=== PATIENT | female | born 1965 | race Caucasian/White ===

== ENCOUNTER 2017-04-19 09:14 | Emergency (ER) | payer BC ==
[~2017-04-19] VITALS: Ht 167.6 cm; Wt 90.7 kg
[~2017-04-19 09:14] MED LIST: ONDA4TAB10 SL; OXYC-323 PO
[2017-04-19] MEDS ORDERED: IV NORMAL SALINE 1000ML BAG 1,000 ML IV ONE (10:00)
[2017-04-19] MEDS ORDERED: KETOROLAC 30 MG/ML INJ. IV ONE (10:00)
[2017-04-19] MEDS ORDERED: ONDANSETRON PF 4 MG/2 ML VIAL. IV ONE (10:00)
--- NOTE | 2017-04-19 10:09 | PHYS DOC ---
Past Medical History Past Medical History: Diabetes-Type II, Kidney Stone Past Surgical History: Appendectomy, Tonsillectomy Alcohol Use: Occasionally Drug Use: None Adult General Chief Complaint Chief Complaint: ABDOMINAL PAIN HPI HPI Patient is a 51 year old female who presents with bilateral flank pain with radiation into her abdomen, more prominent in her right upper quadrant. It occurred abruptly yesterday when she twisted work. Initially she thought maybe that she throughout her back, then she noted radiation of pain towards the lower abdomen and had blood in her urine. Pt then thought it felt similar to prior kidney stones. She was given a Toradol shot by her boss at her medical place of work and went home. She continues to have the pain today, nausea no vomiting. She also had some chest pain overnight but this resolved. Also reports watery diarrhea since yesterday. H/o appendectomy. Review of Systems Review of Systems Constitutional: Denies fever or chills [] Eyes: Denies change in visual acuity, redness, or eye pain [] HENT: Denies nasal congestion or sore throat [] Respiratory: Denies cough or shortness of breath [] Cardiovascular: chest pain overnight - resolved GI: per hpi, reports watery stools. : Denies dysuria or hematuria [] Musculoskeletal: Denies joint pain [] Integument: Denies rash or skin lesions [] Neurologic: Denies headache, focal weakness or sensory changes [] Current Medications Current Medications Current Medications Medications (Trade) Dose Ordered Sig/[place] Start Time Stop Time Status Last Admin Dose Admin Ketorolac Tromethamine (Toradol) 30 mg 1X ONCE 04/19/17 10:00 04/19/17 10:02 DC 04/19/17 10:28 30 MG Ondansetron HCl (Zofran) 4 mg 1X ONCE 04/19/17 10:00 04/19/17 10:02 DC 04/19/17 10:27 4 MG Sodium Chloride 1,000 ml @ 1,000 mls/hr 1X ONCE 04/19/17 10:00 04/19/17 10:59 DC 04/19/17 10:27 1,000 MLS/HR Allergies Allergies Allergies Coded Allergies Type Severity Reaction Last Updated Verified No Known Drug Allergies 09/25/13 No Physical Exam Physical Exam Constitutional: Well developed, well nourished, no acute distress, non-toxic appearance.Obese HENT: Normocephalic, atraumatic, bilateral external ears normal, oropharynx moist, no oral exudates, nose normal. [] Eyes: PERRLA, EOMI, conjunctiva normal, no discharge. [] Neck: Normal range of motion, no tenderness, supple, no stridor. [] Cardiovascular:Heart rate regular with regular rhythm, no murmur [] Lungs & Thorax: Bilateral breath sounds clear to auscultation [] Abdomen: Bowel sounds normal, soft, nondistended, no appreciable ttp, no guarding, no peritoneal signs Skin: Warm, dry, no erythema, no rash. [] Back: No tenderness, no CVA tenderness. [] Extremities: No tenderness, no cyanosis, no clubbing, ROM intact, no edema. [] Neurologic: Alert and oriented X 3, normal motor function, normal sensory function, no focal deficits noted. [] Psychologic: Affect normal, judgement normal, mood normal. [] Current Patient Data Vital Signs Vital Signs Date Time Temp Pulse Resp B/P (MAP) Pulse Ox O2 Delivery O2 Flow Rate FiO2 04/19/17 10:55 78 127/82 (97) 99 Room Air 04/19/17 09:31 97.7 97.7 Lab Values Laboratory Tests Test 04/19/17 10:20 04/19/17 10:50 White Blood Count 8.8 x10^3/uL (4.0-11.0) Red Blood Count 4.78 x10^6/uL (3.50-5.40) Hemoglobin 15.1 g/dL (12.0-15.5) Hematocrit 45.4 % (36.0-47.0) Mean Corpuscular Volume 95 fL (79-100) Mean Corpuscular Hemoglobin 32 pg (25-35) Mean Corpuscular Hemoglobin Concent 33 g/dL (31-37) Red Cell Distribution Width 13.2 % (11.5-14.5) Platelet Count 304 x10^3/uL (140-400) Neutrophils (%) (Auto) 75 % (31-73) H Lymphocytes (%) (Auto) 14 % (24-48) L Monocytes (%) (Auto) 7 % (0-9) Eosinophils (%) (Auto) 4 % (0-3) H Basophils (%) (Auto) 1 % (0-3) Neutrophils # (Auto) 6.6 x10^3uL (1.8-7.7) Lymphocytes # (Auto) 1.2 x10^3/uL (1.0-4.8) Monocytes # (Auto) 0.6 x10^3/uL (0.0-1.1) Eosinophils # (Auto) 0.3 x10^3/uL (0.0-0.7) Basophils # (Auto) 0.1 x10^3/uL (0.0-0.2) Sodium Level 142 mmol/L (136-145) Potassium Level 4.5 mmol/L (3.5-5.1) Chloride Level 104 mmol/L (98-107) Carbon Dioxide Level 28 mmol/L (21-32) Anion Gap 10 (6-14) Blood Urea Nitrogen 23 mg/dL (7-20) H Creatinine 0.9 mg/dL (0.6-1.0) Estimated GFR (Cockcroft-Gault) 65.5 BUN/Creatinine Ratio 26 (6-20) H Glucose Level 162 mg/dL (70-99) H Calcium Level 9.5 mg/dL (8.5-10.1) Total Bilirubin 0.3 mg/dL (0.2-1.0) Aspartate Amino Transferase (AST) 33 U/L (15-37) Alanine Aminotransferase (ALT) 51 U/L (14-59) Alkaline Phosphatase 116 U/L (46-116) Troponin I Quantitative < 0.017 ng/mL (0.000-0.055) Total Protein 7.2 g/dL (6.4-8.2) Albumin 4.2 g/dL (3.4-5.0) Albumin/Globulin Ratio 1.4 (1.0-1.7) Lipase 204 U/L (73-393) Urine Collection Type Unknown Urine Color Yellow Urine Clarity Clear Urine pH 7.5 Urine Specific [place] 1.020 Urine Protein Negative mg/dL (NEG-TRACE) Urine Glucose (UA) Negative mg/dL (NEG) Urine Ketones (Stick) Negative mg/dL (NEG) Urine Blood Trace (NEG) Urine Nitrite Negative (NEG) Urine Bilirubin Negative (NEG) Urine Urobilinogen Dipstick 0.2 mg/dL (0.2 mg/dL) Urine Leukocyte Esterase Negative (NEG) Urine RBC 3-5 /HPF (0-2) Urine WBC 1-4 /HPF (0-4) Urine Squamous Epithelial Cells Few /LPF Urine Bacteria Few /HPF (0-FEW) Laboratory Tests 04/19/17 10:20 Laboratory Tests 04/19/17 10:20 EKG EKG [] Radiology/Procedures Radiology/Procedures CT abd/pelvis: Impression: No evidence of urolithiasis or obstructive uropathy. Mild wall thickening of the left colon and transverse colon without surrounding inflammation. This is not diverticulitis. This could be inflammatory or infectious colitis. There is no air in the wall to suggest ischemic colitis.[] Course & Med Decision Making Course & Med Decision Making Pertinent Labs and Imaging studies reviewed. (See chart for details) IV started, IV fluids given, toradol, zofran, fluids, labs ordered. Pain controlled, CT results discussed with the pt. pt agreeable with dc and f/u with pcp, return precautions given. Dragon Disclaimer Dragon Disclaimer This electronic medical record was generated, in whole or in part, using a voice recognition dictation system. Departure Departure Impression: Primary Impression: Abdominal pain Disposition: HOME, SELF-CARE Condition: IMPROVED Referrals: ROSARIO DASILVA MD (PCP) Scripts Loperamide Hcl (LOPERAMIDE) 2 Mg Tablet 2 MG PO see instructions, #16 TAB Take 1 tab with each loose stool, up to 8 tabs per day. Prov: RIA WELLINGTON MD 04/19/17 RIA WELLINGTON MD Apr 19, 2017 10:09
--- NOTE | 2017-04-19 10:17 | EKG ---
[facility] [address] [place] [address] Test Date: 2017-04-19 Test Time: 10:11:46 Pat Name: DANYELL TAYLOR Department: Room: Gender: F Learning Development Specialist: : [id number] Requested By: RIA WELLINGTON Order Number: [id number] Reading MD: Measurements Intervals [place] Rate: 78 P: 64 WI: 136 QRS: 3 QRSD: 78 T: 43 QT: 368 QTc: 422 Interpretive Statements SINUS RHYTHM NORMAL ECG No previous ECG available for comparison
[2017-04-19 10:31] LABS: BASO # 0.1 x10^3/uL (0.0-0.2); BASO % 1 % (0-3); EOS % 4 % (0-3); HEMATOCRIT 45.4 % (36.0-47.0); HEMOGLOBIN 15.1 g/dL (12.0-15.5); LYMPH # 1.2 x10^3/uL (1.0-4.8); LYMPH % 14 % (24-48); MEAN CORPUSCULAR HEMOGLOBIN 32 pg (25-35); MEAN CORPUSCULAR HGB CONC 33 g/dL (31-37); MEAN CORPUSCULAR VOLUME 95 fL (79-100); MONO % 7 % (0-9); NEUT % 75 % (31-73); PLATELET COUNT 304 x10^3/uL (140-400); RED BLOOD COUNT 4.78 x10^6/uL (3.50-5.40); RED CELL DISTRIBUTION WIDTH 13.2 % (11.5-14.5); WHITE BLOOD COUNT 8.8 x10^3/uL (4.0-11.0)
[2017-04-19 10:41] LABS: CALCIUM 9.5 mg/dL (8.5-10.1); CREATININE 0.9 mg/dL (0.6-1.0); GFR 65.5; POTASSIUM 4.5 mmol/L (3.5-5.1)
[2017-04-19 10:47] LABS: ALBUMIN 4.2 g/dL (3.4-5.0); ALBUMIN/GLOBULIN RATIO 1.4 (1.0-1.7); TOTAL BILIRUBIN 0.3 mg/dL (0.2-1.0); TOTAL PROTEIN 7.2 g/dL (6.4-8.2)
[2017-04-19 10:55] VITALS: BP 127/82
[2017-04-19 11:05] LABS: BILIRUBIN,URINE NEGATIVE (NEG); GLUCOSE,URINE NEGATIVE (NEG); NITRITE,URINE NEGATIVE (NEG); PH,URINE 7.5; PROTEIN,URINE NEGATIVE (NEG-TRACE); UROBILINOGEN,URINE 0.2 mg/dL (0.2 mg/dL)
[2017-04-19 11:11] LABS: SQUAMOUS EPITHELIAL CELL,UR FEW /LPF
[2017-04-19 11:13] LABS: BACTERIA,URINE FEW /HPF (0-FEW)
--- NOTE | 2017-04-19 12:09 | RAD ---
History: Bilateral flank pain. Comparison:March 04, 2016. Procedure: Axial images are obtained of the abdomen and pelvis without IV or oral contrast. CT abdomen without contrast: Evaluation of solid organs is limited without contrast. Liver: Normal. Spleen: Normal. Pancreas: Normal. Gallbladder: Normal. Adrenal Glands: There is a 2.6 cm adrenal adenoma left, an incidental finding.. This is unchanged. Kidneys: Normal. There is no free air or free fluid. There is no lymphadenopathy. There is mild wall thickening of the left colon and transverse colon. Impression: Please see CT pelvis without contrast. CT pelvis without contrast: Evaluation of stomach and bowel is limited without contrast. There is no free fluid or lymphadenopathy. Impression: No evidence of urolithiasis or obstructive uropathy. Mild wall thickening of the left colon and transverse colon without surrounding inflammation. This is not diverticulitis. This could be inflammatory or infectious colitis. There is no air in the wall to suggest ischemic colitis. PQRS Compliance Statement: One or more of the following individualized dose reduction techniques were utilized for this examination: 1. Automated exposure control 2. Adjustment of the mA and/or kV according to patient size 3. Use of iterative reconstruction technique
[2017-04-19] MEDS ORDERED: LOPE2TAB27 PO (12:22)
== END 2017-04-19 12:30 | disposition home or self-care (01) ==
LOC: ER 09:14
DX: R10.11 Right upper quadrant pain (principal); R10.12 Left upper quadrant pain; R19.7 Diarrhea, unspecified; E11.9 Type 2 diabetes mellitus without complications; Z87.442 Personal history of urinary calculi; Z90.49 Acquired absence of other specified parts of digestive tract
CPT/HCPCS: 36415; 74176; 80053; 81001; 83690; 84484; 85025; 93005; 96374; 96375; 96376; 99285; J1885; J2405; J7030

== ENCOUNTER → 2018-03-18 | Outpatient (CLI) | payer BC ==
[~2018-03-18] MED LIST changes: +LOPE2TAB27 PO
--- NOTE | 2018-03-18 14:13 | KCIC ---
CHEST PA LATERAL Clinical indications: Shortness of breath. Difficulty breathing. Productive cough since March 14, 2018. Smoker. COMPARISON: March 04, 2013. Findings: No acute lung infiltrate or pleural effusion or pulmonary edema or lung mass or pneumothorax is seen. The heart size, pulmonary vasculature, mediastinum and both sergio are unremarkable. The osseous structures appear intact. Impression: No acute radiographic abnormality is seen. Electronically signed by: Yaron Craig MD (03/18/2018 2:10 PM) [place] [id number]
== END | disposition home or self-care (01) ==
LOC: KCIC 13:45
PROVIDERS: ATTEND Family Medicine
DX: R06.02 Shortness of breath (principal); R05 Cough; F17.210 Nicotine dependence, cigarettes, uncomplicated
CPT/HCPCS: 71046

== ENCOUNTER 2020-08-12 11:50 | Observation (INO) | payer BC ==
[~2020-08-12] VITALS: Ht 167.6 cm; Wt 70.5 kg
[~2020-08-12 11:50] MED LIST changes: -OXYC-323 PO; +OXYC1TAB15 PO
--- NOTE | 2020-08-12 12:19 | PHYS DOC ---
Past Medical History Past Medical History: Diabetes-Type II, Kidney Stone Past Surgical History: Appendectomy, Tonsillectomy Smoking Status: Current Every Day Smoker Alcohol Use: Occasionally Drug Use: None General Adult EDM: Chief Complaint: CHEST PAIN HPI: HPI: 55-year-old female presented emerge department today with left-sided chest pain radiates down the arm into the left shoulder and into the back. She had some nausea with vomiting earlier today with some tingling in her left arm. She denies any diaphoresis or shortness of breath. She does have some dizziness associated with the symptoms. She reports that her glucose was 600 earlier this morning but came down with some insulin and here is about 366. She denies unilateral leg swelling hemoptysis recent surgery or immobilization. She denies history of DVT or PE. She has a family history of heart disease, has a history of hypertension but currently is not treated, has hyperlipidemia and is a current smoker. She also has diabetes. Review of systems negative for abdominal pain diaphoresis fevers chills. Positive for chest pain. She denies headache vomiting nuchal rigidity or focal neurologic deficits. All other review of systems negative. 55-year-old female presenting to the emergency department today with chest pain. On arrival she is afebrile with a normal heart rate. Saturating well on room air. Her EKG shows sinus rhythm with a regular rate. ST segments congruent. S he has some nonspecific T wave flattening in her leads III and aVF. ST segments otherwise congruent. Not suggestive of acute ischemia. Nonspecific. Chest x- ray unremarkable. Blood work unremarkable including a normal D-dimer and normal troponin. Heart score calculated. We will admit for serial troponins and cardiology consultation Heart Score: C/O Chest Pain: Yes HEART Score for Chest Pain: HEART Score for Chest Pain Response (Comments) Value History Moderately Suspicious 1 ECG Nonspecific Repolarizatio 1 Age >45 - < 65 1 Risk Factors >3 Risk Factors or Hx CAD 2 Troponin < Normal Limit 0 Total 5 Risk Factors: Risk Factors: DM, Current or recent (<one month) smoker, HTN, HLP, family history of CAD, obesity. Risk Scores: Score 0 - 3: 2.5% MACE over next 6 weeks - Discharge Home Score 4 - 6: 20.3% MACE over next 6 weeks - Admit for Clinical Observation Score 7 - 10: 72.7% MACE over next 6 weeks - Early Invasive Strategies Allergies: Allergies: Allergies Coded Allergies Type Severity Reaction Last Updated Verified No Known Drug Allergies 09/25/13 No Physical Exam: PE: Constitutional: Well developed, well nourished, no acute distress, non-toxic appearance. [] HENT: Normocephalic, atraumatic, bilateral external ears normal, oropharynx moist, no oral exudates, nose normal. [] Eyes: PERRLA, EOMI, conjunctiva normal, no discharge. [] Neck: Normal range of motion, no tenderness, supple, no stridor. [] Cardiovascular:Heart rate regular rhythm, no murmur [] Lungs & Thorax: Bilateral breath sounds clear to auscultation [] Abdomen: Bowel sounds normal, soft, no tenderness, no masses, no pulsatile masses. [] Skin: Warm, dry, no erythema, no rash. [] Back: No tenderness, no CVA tenderness. [] Extremities: No tenderness, no cyanosis, no clubbing, ROM intact, no edema. [] Neurologic: Alert and oriented X 3, normal motor function, normal sensory function, no focal deficits noted. [] Psychologic: Affect normal, judgement normal, mood normal. [] Current Patient Data: Vital Signs: Vital Signs Date Time Temp Pulse Resp B/P (MAP) Pulse Ox O2 Delivery O2 Flow Rate FiO2 08/12/20 12:02 98.0 79 18 151/85 (107) 100 Room Air 98.0 EKG: EKG: [] Radiology/Procedures: Radiology/Procedures: [] Course & Med Decision Making: Course & Med Decision Making Pertinent Labs and Imaging studies reviewed. (See chart for details) [] Dragon Disclaimer: Dragon Disclaimer: This electronic medical record was generated, in whole or in part, using a voice recognition dictation system. Departure Departure Impression: Primary Impression: Chest pain Disposition: ADMITTED INPT THIS HOSP Admitting Physician: HIMS Condition: STABLE Referrals: ROSARIO DASILVA MD (PCP) ANGELA HEATH MD Aug 12, 2020 12:19
[2020-08-12 12:25] LABS: BASO # 0.1 x10^3/uL (0.0-0.2); BASO % 1 % (0-3); EOS # 0.1 x10^3/uL (0.0-0.7); EOS % 2 % (0-3); HEMATOCRIT 41.3 % (36.0-47.0); LYMPH # 2.1 x10^3/uL (1.0-4.8); LYMPH % 25 % (24-48); MEAN CORPUSCULAR HEMOGLOBIN 32 pg (25-35); MEAN CORPUSCULAR HGB CONC 34 g/dL (31-37); MEAN CORPUSCULAR VOLUME 95 fL (79-100); MONO # 0.5 x10^3/uL (0.0-1.1); MONO % 7 % (0-9); NEUT # 5.4 x10^3/uL (1.8-7.7); NEUT % 66 % (31-73); PLATELET COUNT 322 x10^3/uL (140-400); RED BLOOD COUNT 4.34 x10^6/uL (3.50-5.40); RED CELL DISTRIBUTION WIDTH 13.7 % (11.5-14.5); WHITE BLOOD COUNT 8.3 x10^3/uL (4.0-11.0)
--- NOTE | 2020-08-12 12:32 | RAD ---
AP chest. HISTORY: Chest pain AP view was taken of the chest. Lungs are clear. Heart is normal in size. There is no pleural effusio n. IMPRESSION: 1. No acute chest disease. Electronically signed by: Shaq Elias MD (08/12/2020 12:29 PM) [id number]
[2020-08-12 12:42] LABS: CALCIUM 8.8 mg/dL (8.5-10.1); CREATININE 0.8 mg/dL (0.6-1.0); GFR 73.9; POTASSIUM 4.6 mmol/L (3.5-5.1)
[2020-08-12 12:47] LABS: ALBUMIN 3.4 g/dL (3.4-5.0); DIRECT BILIRUBIN 0.1 mg/dL (0.0-0.2); TOTAL BILIRUBIN 0.2 mg/dL (0.2-1.0); TOTAL PROTEIN 6.4 g/dL (6.4-8.2)
[2020-08-12] MEDS ORDERED: DEXTROSE 50% 25 GM / 50ML DISP.SYRIN. IV PRN (13:30)
[2020-08-12] MEDS ORDERED: ASPIRIN CHEWABLE 81 MG TABLET. PO ONE (13:30)
--- NOTE | 2020-08-12 13:32 | PDOC1 ---
History and Physical Date of Admission Date of Admission DATE: 08/12/20 TIME: 13:19 Identification/Chief Complaint Chief Complaint Chest pain Source Source: Patient History of Present Illness History of Present Illness Ms Little is a 55-year-old female w/ PMHx DM2, HLD, nephrolithiasis, smoker who presented emerge department today with left-sided chest pain radiates down the arm into the left shoulder and into the back. She had some nausea with vomiting earlier today with some tingling in her left arm. She denies any diaphoresis or shortness of breath. She does have some dizziness associated with the symptoms. She reports that her glucose was 600 earlier this morning but came down with some insulin and here is about 366. She denies unilateral leg swelling hemoptysis recent surgery or immobilization. She denies history of DVT or PE. Previously has had a cardiac work-up with a stress test back in 2008 she says she assumes was negative with Dr. Domingo but is since not had any cardiac follow-up. She notes she has been frustrated as she has not been able to control her diabetes despite multiple medications. She has side effects from Metformin. She is currently on Januvia and 55 units of glargine insulin at night. She was using Afrin he is inhaled insulin and feels like maybe she made insulin antibodies after using this. Labs WBC 8.3, Hb 14, platelets 322, NA 141, K4.6, BUN 15, CR 0.8, glucose 343, INR 0.9, D-dimer less than 0.27, troponin 0 She denies abdominal pain diaphoresis fevers chills. Positive for chest pain. She denies headache vomiting nuchal rigidity or focal neurologic deficits. All other review of systems negative. EKG shows sinus rhythm with a regular rate of 81bpm. ST segments congruent. She has some nonspecific T wave flattening in her leads I, III and aVF. Now with left axis deviation which is new from prior 2017 study, though not suggest ant of acute ischemia. Chest x-ray unremarkable. Due to high risk for ACS admitted for further care. Past Medical History Cardiovascular: HTN, Hyperlipidemia Endocrine: Diabetes Past Surgical History Past Surgical History: Appendectomy, Tonsillectomy Family History Family History: Coronary Artery Disease, Diabetes, High Cholestrol, Hypertension Social History Smoke: 1 pack per day ALCOHOL: none Drugs: None Current Medications Current Medications Active Scripts Active Loperamide (Loperamide Hcl) 2 Mg Tablet 2 Mg PO SEE INSTRUCTIONS Take 1 tab with each loose stool, up to 8 tabs per day. Percocet 5-325 Mg Tablet (Oxycodone/Acetaminophen) 1 Each Tablet 1 Tab PO PRN Q6HRS PRN Zofran Odt (Ondansetron) 4 Mg Tab.rapdis 1 Tab SL Q8HRS Allergies Allergies: Coded Allergies: No Known Drug Allergies (Unverified , 09/25/13) ROS General: YES: Fatigue, Malaise; No: Chills, Night Sweats, Appetite, Other PSYCHOLOGICAL ROS: No: Anxiety, Behavioral Disorder, Concentration difficultie, Decreased libido, Depression, Disorientation, Hallucinations, Hostility, Irritablity, Memory difficulties, Mood Swings, Obsessive thoughts, Physical abuse, Sexual abuse, Sleep disturbances, Suicidal ideation, Other Eyes: No Blurry vision, No Decreased vision, No Double vision, No Dry eyes, No Excessive tearing, No Eye Pain, No Itchy Eyes, No Loss of vision, No Photophobia , No Scotomata, No Uses contacts, No Uses glasses, No Other HEENT: No: Heacaches, Visual Changes, Hearing change, Nasal congestion, Nasal discharge, Oral lesions, Sinus pain, Sore Throat, Epistaxis, Sneezing, Snoring, Tinnitus, Vertigo, Vocal changes, Other ALLERGY AND IMMUNOLOGY: No: Hives, Insect Bite Sensitivity, Itchy/Watery Eyes, Nasal Congestion, Post Nasal Drip, Seasonal Allergies, Other Hematological and Lymphatic: No: Bleeding Problems, Blood Clots, Blood Transfusions, Brusing, Night Sweats, Pallor, Swollen Lymph Nodes, Other ENDOCRINE: No: Breast Changes, Galactorrhea, Hair Pattern Changes, Hot Flashes, Malaise/lethargy, Mood Swings, Palpitations, Polydipsia/polyuria, Skin Changes, Temperature Intolerance, Unexpected Weight Changes, Other Breast: No New/Changing Breast Lumps, No Nipple changes, No Nipple discharge, No Other Respiratory: No: Cough, Hemoptysis, Orthopnea, Pleuritic Pain, Shortness of breath, SOB with excertion, Sputum Changes, Stridor, Tachypnea, Wheezing, Other Cardiovascular: yes Chest Pain; No Palpitations, No Orthopnea, No Paroxysmal Noc. Dyspnea, No Edema, No Lt Headedness, No Other Gastrointestinal: No Nausea, No Vomiting, No Abdominal Pain, No Diarrhea, No Co nstipation, No Melena, No Hematochezia, No Other Genitourinary: No Dysuria, No Frequency, No Incontinence, No Hematuria, No Retention, No Discharge, No Urgency, No Pain, No Flank Pain, No Other, No , No , No , No , No , No , No Musculoskeletal: No Gait Disturbance, No Joint Pain, No Joint Stiffness, No Joint Swelling, No Muscle Pain, No Muscular Weakness, No Pain In:, No Swelling In:, No Other Neurological: Yes Numbness/Tingling; No Behavorial Changes, No Bowel/Bladder ControlChng, No Confusion, No Dizziness, No Gait Disturbance, No Headaches, No Impaired Coord/balance, No Memory Loss, No Seizures, No Speech Problems, No Tremors, No Visual Changes, No Weakness, No Other Skin: No Dry Skin, No Eczema, No Hair Changes, No Lumps, No Mole Changes, No Mottling, No Nail Changes, No Pruritus, No Rash, No Skin Lesion Changes, No Other, No Acne Physical Exam General: Alert, Oriented X3, Cooperative, No acute distress HEENT: Atraumatic, PERRLA, EOMI, Mucous membr. moist/pink Lungs: Clear to auscultation, Normal air movement Heart: S1S2, RRR, no thrills, no rubs, no gallops, no murmurs Abdomen: Normal bowel sounds, Soft, No tenderness, No hepatosplenomegaly, No masses Rectal Exam: not examined Extremities: No clubbing, No cyanosis, No edema, Normal pulses, No tenderness/swelling Skin: No rashes, No breakdown, No significant lesion Neuro: Normal gait, Normal speech, Strength at 5/5 X4 ext, Normal tone, Sensation intact, Cranial nerves 3-12 NL, Reflexes 2+ Psych/Mental Status: Mental status NL, Mood NL Vitals Vitals Vital Signs Date Time Temp Pulse Resp B/P (MAP) Pulse Ox O2 Delivery O2 Flow Rate FiO2 08/12/20 12:02 98.0 79 18 151/85 (107) 100 Room Air 98.0 Labs Labs Laboratory Tests Test 08/12/20 12:10 White Blood Count 8.3 x10^3/uL (4.0-11.0) Red Blood Count 4.34 x10^6/uL (3.50-5.40) Hemoglobin 14.0 g/dL (12.0-15.5) Hematocrit 41.3 % (36.0-47.0) Mean Corpuscular Volume 95 fL (79-100) Mean Corpuscular Hemoglobin 32 pg (25-35) Mean Corpuscular Hemoglobin Concent 34 g/dL (31-37) Red Cell Distribution Width 13.7 % (11.5-14.5) Platelet Count 322 x10^3/uL (140-400) Neutrophils (%) (Auto) 66 % (31-73) Lymphocytes (%) (Auto) 25 % (24-48) Monocytes (%) (Auto) 7 % (0-9) Eosinophils (%) (Auto) 2 % (0-3) Basophils (%) (Auto) 1 % (0-3) Neutrophils # (Auto) 5.4 x10^3/uL (1.8-7.7) Lymphocytes # (Auto) 2.1 x10^3/uL (1.0-4.8) Monocytes # (Auto) 0.5 x10^3/uL (0.0-1.1) Eosinophils # (Auto) 0.1 x10^3/uL (0.0-0.7) Basophils # (Auto) 0.1 x10^3/uL (0.0-0.2) Prothrombin Time 12.0 SEC (11.7-14.0) Prothromb Time International Ratio 0.9 (0.8-1.1) Activated Partial Thromboplast Time 27 SEC (24-38) D-Dimer (Christine) < 0.27 ug/mlFEU Sodium Level 141 mmol/L (136-145) Potassium Level 4.6 mmol/L (3.5-5.1) Chloride Level 107 mmol/L (98-107) Carbon Dioxide Level 25 mmol/L (21-32) Anion Gap 9 (6-14) Blood Urea Nitrogen 15 mg/dL (7-20) Creatinine 0.8 mg/dL (0.6-1.0) Estimated GFR (Cockcroft-Gault) 73.9 Glucose Level 343 mg/dL (70-99) Calcium Level 8.8 mg/dL (8.5-10.1) Total Bilirubin 0.2 mg/dL (0.2-1.0) Direct Bilirubin 0.1 mg/dL (0.0-0.2) Aspartate Amino Transf (AST/SGOT) 11 U/L (15-37) Alanine Aminotransferase (ALT/SGPT) 21 U/L (14-59) Alkaline Phosphatase 98 U/L (46-116) Troponin I Quantitative < 0.017 ng/mL (0.000-0.055) OL-Frp-R-Type Natriuretic Peptide 36 pg/mL (0-124) Total Protein 6.4 g/dL (6.4-8.2) Albumin 3.4 g/dL (3.4-5.0) Lipase 202 U/L (73-393) Laboratory Tests Test 08/12/20 12:10 White Blood Count 8.3 x10^3/uL (4.0-11.0) Red Blood Count 4.34 x10^6/uL (3.50-5.40) Hemoglobin 14.0 g/dL (12.0-15.5) Hematocrit 41.3 % (36.0-47.0) Mean Corpuscular Volume 95 fL (79-100) Mean Corpuscular Hemoglobin 32 pg (25-35) Mean Corpuscular Hemoglobin Concent 34 g/dL (31-37) Red Cell Distribution Width 13.7 % (11.5-14.5) Platelet Count 322 x10^3/uL (140-400) Neutrophils (%) (Auto) 66 % (31-73) Lymphocytes (%) (Auto) 25 % (24-48) Monocytes (%) (Auto) 7 % (0-9) Eosinophils (%) (Auto) 2 % (0-3) Basophils (%) (Auto) 1 % (0-3) Neutrophils # (Auto) 5.4 x10^3/uL (1.8-7.7) Lymphocytes # (Auto) 2.1 x10^3/uL (1.0-4.8) Monocytes # (Auto) 0.5 x10^3/uL (0.0-1.1) Eosinophils # (Auto) 0.1 x10^3/uL (0.0-0.7) Basophils # (Auto) 0.1 x10^3/uL (0.0-0.2) Prothrombin Time 12.0 SEC (11.7-14.0) Prothromb Time International Ratio 0.9 (0.8-1.1) Activated Partial Thromboplast Time 27 SEC (24-38) D-Dimer (Christine) < 0.27 ug/mlFEU Sodium Level 141 mmol/L (136-145) Potassium Level 4.6 mmol/L (3.5-5.1) Chloride Level 107 mmol/L (98-107) Carbon Dioxide Level 25 mmol/L (21-32) Anion Gap 9 (6-14) Blood Urea Nitrogen 15 mg/dL (7-20) Creatinine 0.8 mg/dL (0.6-1.0) Estimated GFR (Cockcroft-Gault) 73.9 Glucose Level 343 mg/dL (70-99) Calcium Level 8.8 mg/dL (8.5-10.1) Total Bilirubin 0.2 mg/dL (0.2-1.0) Direct Bilirubin 0.1 mg/dL (0.0-0.2) Aspartate Amino Transf (AST/SGOT) 11 U/L (15-37) Alanine Aminotransferase (ALT/SGPT) 21 U/L (14-59) Alkaline Phosphatase 98 U/L (46-116) Troponin I Quantitative < 0.017 ng/mL (0.000-0.055) IT-Daf-X-Type Natriuretic Peptide 36 pg/mL (0-124) Total Protein 6.4 g/dL (6.4-8.2) Albumin 3.4 g/dL (3.4-5.0) Lipase 202 U/L (73-393) Images Images Chest Radiograph: AP view was taken of the chest. Lungs are clear. Heart is normal in size. There is no pleural effusion. IMPRESSION: 1. No acute chest disease. VTE Prophylaxis Ordered VTE Prophylaxis Devices: No VTE Pharmacological Prophylaxi: Yes Assessment/Plan Assessment/Plan A/P: Chest pain -high risk for unstable angina. Will trend troponins overnight. Aspirin and statin. Nitroglycerin. Consult cardiology. Telemetry overnight. Uncontrolled type II diabetes - A1c > 12 per patient. Left arm numbness - concerning for unstable anginal equivalent, though diabetic polyneuropathy or mononeuritis multiplex Smoker - counseled on cessation HLD - statin HTN - needs ALY at the very least FEN - ADA diet, npo after midnight PPX - heparin FULL CODE Dispo - inpatient Justifications for Admission Other Justification NATANAEL DUTTON MD Aug 12, 2020 13:32
[2020-08-12] MEDS ORDERED: ZOLPIDEM 5 MG TABLET. PO PRN (17:30)
[2020-08-12] MEDS ORDERED: NITROGLYCERIN SUBLINGUAL 0.4 MG BOTTLE OF 25. SL PRN (17:30)
[2020-08-12] MEDS ORDERED: ACETAMINOPHEN 325 MG TABLET. PO PRN (17:30)
[2020-08-12] MEDS ORDERED: ONDANSETRON PF 4 MG/2 ML VIAL. IV PRN (17:30)
[2020-08-12 17:55] VITALS: BP 123/65
--- NOTE | 2020-08-12 17:55 | NUR ---
Patient arrived to room 260 via wheelchair from ER around 1755. Patient A&OX4. VSS. Complaints of a dull left chest pain rating it 3/10, said it was better than earlier. Will continue to monitor.
[2020-08-12] MEDS: INSULIN LISPRO 300 UNITS/3 ML VIAL. SQ SCH (19:00)
[2020-08-12] MEDS ORDERED: HYDR-2761 PO (19:42)
[2020-08-12] MEDS ORDERED: INSU100V37 SQ (19:42)
[2020-08-12] MEDS ORDERED: SITA50TA PO (19:42)
[2020-08-12 19:56] VITALS: BP 130/69
[2020-08-12] MEDS ORDERED: INSULIN GLARGINE SYRINGE. SQ SCH ×2 (21:00)
[2020-08-12 22:32] VITALS: BP 99/58
[2020-08-13 01:44] LABS: CALCIUM 8.4 mg/dL (8.5-10.1); CREATININE 0.9 mg/dL (0.6-1.0); GFR 64.5; POTASSIUM 3.8 mmol/L (3.5-5.1)
[2020-08-13 01:56] LABS: CHOLESTEROL/HDL RATIO 5.4
[2020-08-13 02:36] VITALS: BP 107/65
[2020-08-13 07:00] VITALS: BP 118/67
[2020-08-13] MEDS ORDERED: LINAGLIPTIN 5 MG TABLET PO SCH (09:00)
[2020-08-13] MEDS ORDERED: ENOXAPARIN 40 MG/0.4 ML SYRINGE. SQ SCH (09:00)
[2020-08-13] MEDS ORDERED: LISINOPRIL 5 MG TABLET. PO SCH (09:00)
[2020-08-13] MEDS: INSULIN LISPRO 300 UNITS/3 ML VIAL. SQ SCH ×3 (09:50→17:57)
[2020-08-13 11:00] VITALS: BP 97/55
--- NOTE | 2020-08-13 11:36 | NUR ---
PT ASKING WHY NO PROCEDURES HAVE HAPPENED THIS MORNING. I EXPLAINED THAT CARDIOLOGY WOULD NEED TO EXAMINE PT AND DETERMINE PROCEDURE IF ANY. PT IS ASKING TO GO HOME. I EXPLAINED TO PT THAT CARDIOLOGY MAKES ROUNDS AFTER THEIR PROCEDURES AND THIS DEPENDS ON HOW MANY CASES WELL DIFFICULTY OF CASES. PT IS READY TO GO HOME. I TOLD PT I WOULD PAGE CARDIOLOGY TO SEE WHAT CARDIOLOGY HAS PLANNED FOR THIS PT.
--- NOTE | 2020-08-13 12:20 | NUR ---
SS following for discharge planning. SS reviewed pt chart and discussed with pt RN. Pt is from home with spouse and is currently on room air. Cardiology consulted. Probable discharge to home today if cardiology clears. SS will continue to follow for discharge planning.
--- NOTE | 2020-08-13 12:57 | PDOC2 ---
CONSULT Date of Consult Date of Consult DATE: 08/13/20 TIME: 12:56 Reason for Consult Reason for Consult: Chest pain Referring Physician Referring Physician: Dr. Azar Identification/Chief Complaint Chief Complaint Chest pain Source Source: Chart review, Patient History of Present Illness Reason for Visit: 55-year-old female presented complaining of left-sided chest pain radiating down left shoulder, arm and back that started this morning and lasted a few hours. This is completely resolved now. She had nausea and vomiting earlier today but has currently resolved as well. She denied any exertional component to her chest pain. She also orthopnea/PND, palpitations or syncope. Past Medical History Cardiovascular: HTN, Hyperlipidemia Endocrine: Diabetes Past Surgical History Past Surgical History: Appendectomy, Tonsillectomy Family History Family History: Coronary Artery Disease, Diabetes, High Cholestrol, Hypertension Social History 1 pack per day ALCOHOL: none Drugs: None Current Problem List Problem List Problems Medical Problems: (1) Chest pain Status: Acute Current Medications Current Medications Current Medications Aspirin (Aspirin Chewable) 324 mg 1X ONCE PO Last administered on 08/12/20at 13:45; Start 08/12/20 at 13:30; Stop 08/12/20 at 13:31; Status DC Insulin Glargine (Lantus Syringe) 10 unit QHS SQ ; Start 08/12/20 at 21:00; Stop 08/12/20 at 17:21; Status DC Insulin Human Lispro (HumaLOG) 0-9 UNITS TIDWMEALS SQ Last administered on 08/13/20at 09:50; Start 08/12/20 at 17:00 Dextrose (Dextrose 50%-Water Syringe) 12.5 gm PRN Q15MIN PRN IV SEE COMMENTS; Start 08/12/20 at 13:30 Insulin Glargine (Lantus Syringe) 50 unit QHS SQ Last administered on 08/12/20at 20:57; Start 08/12/20 at 21:00 Linagliptin (Tradjenta) 5 mg DAILY PO Last administered on 08/13/20at 09:42; Start 08/13/20 at 09:00 Ondansetron HCl (Zofran) 4 mg PRN Q4HRS PRN IV NAUSEA/VOMITING; Start 08/12/20 at 17:30 Zolpidem Tartrate (Ambien) 5 mg PRN QHS PRN PO INSOMNIA Last administered on 08/12/20at 20:54; Start 08/12/20 at 17:30 Acetaminophen (Tylenol) 650 mg PRN Q4HRS PRN PO TEMP OVER 100.4F OR MILD PAIN Last administered on 08/13/20at 09:45; Start 08/12/20 at 17:30 Enoxaparin Sodium (Lovenox 40mg Syringe) 40 mg Q24H SQ ; Start 08/13/20 at 09:00 Nitroglycerin (Nitrostat) 0.4 mg PRN Q5MIN PRN SL CHEST PAIN; Start 08/12/20 at 17:30 Lisinopril (Prinivil) 5 mg DAILY PO Last administered on 08/13/20at 07:37; Start 08/13/20 at 09:00 Active Scripts Active Reported Hydrocodone-Apap 5-325 (Hydrocodone Bit/Acetaminophen) 1 Tab Tablet 1 Tab PO PRN Q6HRS PRN Januvia (Sitagliptin Phosphate) 50 Mg Tablet 50 Mg PO DAILY Tresiba (Insulin Degludec) 100 Unit/1 Ml Vial 50 Unit SQ HS Allergies Allergies: Coded Allergies: No Known Drug Allergies (Unverified , 09/25/13) ROS PSYCHOLOGICAL ROS: No: Hallucinations Eyes: No Loss of vision HEENT: No: Epistaxis Respiratory: No: Hemoptysis, Shortness of breath Cardiovascular: yes Chest Pain Gastrointestinal: Yes Nausea, Yes Vomiting Genitourinary: No Hematuria Neurological: No Seizures Skin: No Rash Physical Exam General: Alert, Oriented X3 HEENT: Atraumatic Lungs: Clear to auscultation Heart: Regular rate Abdomen: Soft Extremities: No edema Neuro: Normal speech Psych/Mental Status: Mood NL Vitals VITALS Vital Signs Date Time Temp Pulse Resp B/P (MAP) Pulse Ox O2 Delivery O2 Flow Rate FiO2 08/13/20 11:00 98.2 73 18 97/55 (69) 96 Room Air 98.2 Labs Labs Laboratory Tests Test 08/12/20 12:10 08/12/20 18:15 08/12/20 18:34 08/12/20 20:51 White Blood Count 8.3 x10^3/uL (4.0-11.0) Red Blood Count 4.34 x10^6/uL (3.50-5.40) Hemoglobin 14.0 g/dL (12.0-15.5) Hematocrit 41.3 % (36.0-47.0) Mean Corpuscular Volume 95 fL (79-100) Mean Corpuscular Hemoglobin 32 pg (25-35) Mean Corpuscular Hemoglobin Concent 34 g/dL (31-37) Red Cell Distribution Width 13.7 % (11.5-14.5) Platelet Count 322 x10^3/uL (140-400) Neutrophils (%) (Auto) 66 % (31-73) Lymphocytes (%) (Auto) 25 % (24-48) Monocytes (%) (Auto) 7 % (0-9) Eosinophils (%) (Auto) 2 % (0-3) Basophils (%) (Auto) 1 % (0-3) Neutrophils # (Auto) 5.4 x10^3/uL (1.8-7.7) Lymphocytes # (Auto) 2.1 x10^3/uL (1.0-4.8) Monocytes # (Auto) 0.5 x10^3/uL (0.0-1.1) Eosinophils # (Auto) 0.1 x10^3/uL (0.0-0.7) Basophils # (Auto) 0.1 x10^3/uL (0.0-0.2) Prothrombin Time 12.0 SEC (11.7-14.0) Prothromb Time International Ratio 0.9 (0.8-1.1) Activated Partial Thromboplast Time 27 SEC (24-38) D-Dimer (Christine) < 0.27 ug/mlFEU Sodium Level 141 mmol/L (136-145) Potassium Level 4.6 mmol/L (3.5-5.1) Chloride Level 107 mmol/L (98-107) Carbon Dioxide Level 25 mmol/L (21-32) Anion Gap 9 (6-14) Blood Urea Nitrogen 15 mg/dL (7-20) Creatinine 0.8 mg/dL (0.6-1.0) Estimated GFR (Cockcroft-Gault) 73.9 Glucose Level 343 mg/dL (70-99) Calcium Level 8.8 mg/dL (8.5-10.1) Total Bilirubin 0.2 mg/dL (0.2-1.0) Direct Bilirubin 0.1 mg/dL (0.0-0.2) Aspartate Amino Transf (AST/SGOT) 11 U/L (15-37) Alanine Aminotransferase (ALT/SGPT) 21 U/L (14-59) Alkaline Phosphatase 98 U/L (46-116) Troponin I Quantitative < 0.017 ng/mL (0.000-0.055) < 0.017 ng/mL (0.000-0.055) MN-Iuo-I-Type Natriuretic Peptide 36 pg/mL (0-124) Total Protein 6.4 g/dL (6.4-8.2) Albumin 3.4 g/dL (3.4-5.0) Lipase 202 U/L (73-393) Glucose (Fingerstick) 302 mg/dL (70-99) 131 mg/dL (70-99) Test 08/13/20 00:51 08/13/20 07:59 08/13/20 12:23 Sodium Level 143 mmol/L (136-145) Potassium Level 3.8 mmol/L (3.5-5.1) Chloride Level 106 mmol/L (98-107) Carbon Dioxide Level 26 mmol/L (21-32) Anion Gap 11 (6-14) Blood Urea Nitrogen 22 mg/dL (7-20) Creatinine 0.9 mg/dL (0.6-1.0) Estimated GFR (Cockcroft-Gault) 64.5 Glucose Level 236 mg/dL (70-99) Calcium Level 8.4 mg/dL (8.5-10.1) Troponin I Quantitative < 0.017 ng/mL (0.000-0.055) Triglycerides Level 284 mg/dL (0-150) Cholesterol Level 198 mg/dL (0-200) LDL Cholesterol, Calculated 104 mg/dL (0-100) VLDL Cholesterol, Calculated 57 mg/dL (0-40) Non-HDL Cholesterol Calculated 161 mg/dL (0-129) HDL Cholesterol 37 mg/dL (40-60) Cholesterol/HDL Ratio 5.4 Glucose (Fingerstick) 227 mg/dL (70-99) 102 mg/dL (70-99) Laboratory Tests Test 08/12/20 18:15 08/12/20 18:34 08/12/20 20:51 08/13/20 00:51 Troponin I Quantitative < 0.017 ng/mL (0.000-0.055) < 0.017 ng/mL (0.000-0.055) Glucose (Fingerstick) 302 mg/dL (70-99) 131 mg/dL (70-99) Sodium Level 143 mmol/L (136-145) Potassium Level 3.8 mmol/L (3.5-5.1) Chloride Level 106 mmol/L (98-107) Carbon Dioxide Level 26 mmol/L (21-32) Anion Gap 11 (6-14) Blood Urea Nitrogen 22 mg/dL (7-20) Creatinine 0.9 mg/dL (0.6-1.0) Estimated GFR (Cockcroft-Gault) 64.5 Glucose Level 236 mg/dL (70-99) Calcium Level 8.4 mg/dL (8.5-10.1) Triglycerides Level 284 mg/dL (0-150) Cholesterol Level 198 mg/dL (0-200) LDL Cholesterol, Calculated 104 mg/dL (0-100) VLDL Cholesterol, Calculated 57 mg/dL (0-40) Non-HDL Cholesterol Calculated 161 mg/dL (0-129) HDL Cholesterol 37 mg/dL (40-60) Cholesterol/HDL Ratio 5.4 Test 08/13/20 07:59 08/13/20 12:23 Glucose (Fingerstick) 227 mg/dL (70-99) 102 mg/dL (70-99) Assessment/Plan Assessment/Plan 1. Chest pain with atypical features. Myocardial infarction has been ruled out. Check 2D echo to assess LV systolic function and rule out wall motion abnormalities. Ischemic evaluation in the form of stress test could be considered as an outpatient. 2. Diabetes mellitus type 2, uncontrolled. Treat per IM. 3. Hyperlipidemia: Patient was advised on exercise and diet control. Repeat lipid profile in 3 months to evaluate the need for statin therapy. 4. Hypertension: Patient was started on Prinivil on admission but blood pressure currently running low. She is not on any antihypertensives at home. We will readdress this as an outpatient. 5. Tobacco abuse: Advised on smoking cessation MAYA MELCHOR MD Aug 13, 2020 12:57
--- NOTE | 2020-08-13 14:15 | NUR ---
PT'S BP 79/46. PT IS ASYMPTOMATIC AT THIS TIME. PT WAS ENCOURAGED TO CONTINUE WITH P.O. HYDRATION. PT HAD BEEN KEPT NPO UNTIL APPROX 1300PM TODAY.
[2020-08-13 14:16] VITALS: BP 79/46
[2020-08-13] MEDS ORDERED: IV NORMAL SALINE 500ML BAG 500 ML IV ONE (15:15)
[2020-08-13 15:29] VITALS: BP 114/62
--- NOTE | 2020-08-13 15:29 | NUR ---
500ML NS STARTED. PT'S BP 114/62. WILL CONTINUE TO RUN NS.
[2020-08-13 15:31] LABS: HEMOGLOBIN A1C 11.6 % (4.8-5.6)
--- NOTE | 2020-08-13 18:09 | NUR ---
PER DR JILL JOHNSON TO DISCHARGE PT PRIOR TO ECHO BEING READ. DR ROTH PLACED DISCHARGE ORDERS EARLIER TODAY.
--- NOTE | 2020-08-13 18:27 | NUR ---
Discharge Note: DANYELL TAYLOR [facility] Discharge instructions and discharge home medications reviewed with Patient and a copy given. All questions have been answered and understanding verbalized. The following instructions and handouts were given: DIABETES, CHOLESTEROL DIET Discontinued lines and drains: Peripheral IV intact. Patient discharged to Home or Self Care with Self via Ambulated
--- NOTE | 2020-08-13 19:27 | CARD ---
MR#: [id number] Date of Study: 08/13/2020 Ordering Physician: MAYA MELCHOR, Referring Physician: MAYA MELCHOR, Tech: Emmanuelle Camarenaerichalima, [facility] APPROVED REPORT EXAM: Two-dimensional and M-mode echocardiogram with Doppler and color Doppler. Other Information Quality : AverageHR: 71bpm INDICATION Chest Pain RISK FACTORS Diabetes Smoking 2D DIMENSIONS Left Atrium(2D)3.1 (1.6-4.0cm)IVSd0.9 (0.7-1.1cm) Aortic Root(2D)3.0 (2.0-3.7cm)LVDd4.7 (3.9-5.9cm) LVOT Diameter2.1 (1.8-2.4cm)PWd1.1 (0.7-1.1cm) LVDs3.0 (2.5-4.0cm)FS (%) 37.0 % SV69.5 mlLVEF(%)66.8 (>50%) Aortic Valve AoV Peak Gera.120.1cm/sAoV VTI23.5cm AO Peak GR.5.8mmHgLVOT VTI 15.40cm AO Mean GR.4mmHg Mitral Valve MV E Mbiuakoy66.5cm/sMV DECEL HGUM708om MV A Bdrfyozd10.3cm/sE/A Ratio0.9 TDI Lateral E' P. V10.11cm/sMedial E' P. V8.72cm/s E/Lateral E'3.9E/Medial E'4.5 Tricuspid Valve TR P. Nahninzm600ah/sRAP [id number] TR Peak Gr.99wzHwRMFN64ngEn LEFT VENTRICLE The left ventricle is normal size. There is normal left ventricular wall thickness. The left ventricu lar systolic function is low normal. The Ejection Fraction is 45-50%. Septal motion suggestive of con duction defect, otherwise, there is grossly normal wall motion. Transmitral Doppler flow pattern is G rade I-abnormal relaxation pattern. RIGHT VENTRICLE The right ventricle is normal size. There is normal right ventricular wall thickness. The right ventr icular systolic function is normal. ATRIA The left atrium size is normal. The right atrium size is normal. The interatrial septum is intact wit h no evidence for an atrial septal defect or patent foramen ovale as noted on 2-D or Doppler imaging. AORTIC VALVE The aortic valve is normal in structure and function. Doppler and Color Flow revealed no significant aortic regurgitation. Calculated aortic valve area is 2.38 cm2 with maximum pressure gradient of 7 mm Hg and mean pressure gradient of 4 mmHg. There is no significant aortic valvular stenosis. MITRAL VALVE The mitral valve is normal in structure and function. There is no evidence of mitral valve prolapse. There is no mitral valve stenosis. Doppler and Color-flow revealed trace mitral regurgitation. TRICUSPID VALVE The tricuspid valve is normal in structure and function. Doppler and Color Flow revealed trace tricus pid regurgitation with an estimated PAP of 23 mmHg. There is no tricuspid valve stenosis. PULMONIC VALVE The pulmonic valve is not well visualized. Doppler and Color Flow revealed no pulmonic valvular regur gitation. There is no pulmonic valvular stenosis. GREAT VESSELS The aortic root is normal in size. The IVC is normal in size and collapses >50% with inspiration. PERICARDIAL EFFUSION There is no evidence of significant pericardial effusion. Critical Notification Critical Value: No <Conclusion> The left ventricular systolic function is low normal. The Ejection Fraction is 45-50%. Septal motion suggestive of conduction defect, otherwise, there is grossly normal wall motion. Signed by : Jose Luis Tejada, Electronically Approved : 08/13/2020 19:26:46
== END 2020-08-13 18:27 | disposition home or self-care (01) ==
LOC: ER 11:50 → ED HOLD 13:06 → INTOOBSV 13:06 → 2 SOUTH 18:08
PROVIDERS: ADMIT Internal Medicine; ATTEND Internal Medicine
DX: R07.89 Other chest pain (principal); E11.65 Type 2 diabetes mellitus with hyperglycemia; I10 Essential (primary) hypertension; I25.10 Atherosclerotic heart disease of native coronary artery without angina pectoris; E78.5 Hyperlipidemia, unspecified; F17.210 Nicotine dependence, cigarettes, uncomplicated; R20.0 Anesthesia of skin; Z79.4 Long term (current) use of insulin; Z87.442 Personal history of urinary calculi; Z90.49 Acquired absence of other specified parts of digestive tract; Z79.82 Long term (current) use of aspirin
CPT/HCPCS: 36415; 71045; 80048; 80061; 80076; 82962; 83036; 83690; 83880; 84484; 85025; 85379; 85610; 85730; 93005; 93306; 96372; 99285; G0378; J1815; J7040; G0379

== ENCOUNTER 2021-08-01 03:36 | Emergency (ER) | payer BC ==
[~2021-08-01] VITALS: Ht 167.6 cm; Wt 65.9 kg
[~2021-08-01 03:36] MED LIST changes: +HYDR-2761 PO; +INSU100V37 SQ; +SITA50TA PO
--- NOTE | 2021-08-01 03:45 | PHYS DOC ---
Past Medical History Past Medical History: Diabetes-Type II, Kidney Stone Past Surgical History: Appendectomy, Tonsillectomy Smoking Status: Current Every Day Smoker Alcohol Use: Occasionally Drug Use: None General Adult HPI: HPI: Patient is a 56 year old female who presents here with low back pain which began 2 days ago. The pain is now radiated to both sides of her lower and mid abdomen. She reports nausea and vomiting. She denies constipation or diarrhea. She denies hematemesis, melena or hematochezia. She does report that her urine is "foamy." She denies dysuria or gross hematuria. She denies fevers or chills. She denies chest pain, cough, dyspnea. She denies dizziness, diaphoresis or syncope. She reported that she thought that she slept wrong or "threw my back out" when symptoms initially began. Her low back pain is worse with movement and changes in position, such as sitting forward or bending. She denies radiation of pain down her legs, denies urine or stool incontinence, denies numbness or tingling or focal motor weakness. She does report that her blood sugars have been progressively elevated over the last week or so. She does report compliance with medications. Review of Systems: Review of Systems: Constitutional: Denies fever or chills. [] HENT: Denies nasal congestion or sore throat. [] Respiratory: Denies cough or shortness of breath. [] Cardiovascular: Denies chest pain or edema. [] GI: Generalized abdominal pain, nausea, vomiting. Denies bowel habit changes : Denies dysuria or gross hematuria. Reports urine is "foamy." Musculoskeletal: Mid low back pain. Integument: Denies rash. [] Neurologic: Denies headache, focal weakness or sensory changes. Denies syncope. Endocrine: Hyperglycemia Psychiatric: Denies depression or anxiety. [] Heart Score: C/O Chest Pain: No Risk Factors: Risk Factors: DM, Current or recent (<one month) smoker, HTN, HLP, family history of CAD, obesity. Risk Scores: Score 0 - 3: 2.5% MACE over next 6 weeks - Discharge Home Score 4 - 6: 20.3% MACE over next 6 weeks - Admit for Clinical Observation Score 7 - 10: 72.7% MACE over next 6 weeks - Early Invasive Strategies Allergies: Allergies: Allergies Coded Allergies Type Severity Reaction Last Updated Verified No Known Drug Allergies 09/25/13 No Physical Exam: PE: Constitutional: Well developed, well nourished, no acute distress, non-toxic appearance. She does appear to be uncomfortable and in pain, she is not acutely ill-appearing. HENT: Normocephalic, atraumatic, oropharynx patent and clear, mucous membranes moist. Eyes: Conjunctiva normal, no discharge. Sclera are clear and anicteric Neck: Normal range of motion, no tenderness, supple, no stridor. Trachea is midline. No meningismus Cardiovascular:Heart rate regular rhythm, +2 radial and +2 posterior tibial pulses bilaterally. Lungs & Thorax: Bilateral breath sounds clear to auscultation [] Abdomen: Abdomen is soft, nondistended, mild suprapubic and left lower quadrant tenderness to palpation, mild voluntary guarding, no rebound tenderness, no rigidity. No CVA tenderness. No flank abdominal ecchymoses. No palpable pulsatile mass. No audible bruit. Skin: Warm, dry, no erythema, no rash. No jaundice. Back: No midline tenderness or step-offs. No palpable deformity or reproducible tenderness. No CVA tenderness. Extremities: No tenderness, no cyanosis, no clubbing, ROM intact, no edema. No calf tenderness. Neurologic: Alert and oriented X 3, normal motor function, normal sensory function, no focal deficits noted. [] Psychologic: Affect normal, judgement normal, mood normal. [] EKG: EKG: [] Radiology/Procedures: Radiology/Procedures: IMAGING REPORT Signed PATIENT: DANYELL TAYLOR AACCOUNT: [id number] : 1965 LOCATION: ER AGE: 56 SEX: F EXAM STATUS: REG ER ORD. PHYSICIAN: TETO ROSENTHAL DO REASON: abd pain, back pain, n/v, OMNI 300 75 ML IV PROCEDURE: CT ABD PELV W/ IV CONTRST ONLY CT ABDOMEN+PELVIS W History: Abdominal pain, back pain, nausea and vomiting. Comparison: CT abdomen and pelvis 04/19/2017, 08/14/2013. Technique: CT abdomen pelvis with intravenous contrast. Findings: Atelectatic changes in the lung bases. The liver, gallbladder, pancreas and spleen are unremarkable. There is similar appearance of a left adrenal adenoma measuring 4.0 cm diameter, minimally enlarged from comparison. The right adrenal is unremarkable. There is a left renal cyst. No nephrolithiasis or hydronephrosis. The stomach is well distended. Mild thickening of the gastric antrum. Mild proximal small bowel wall thickening. No obstruction. Mild to moderate colonic stool burden. No pericolonic inflammatory changes. The bladder and prostate are unremarkable. No intra-abdominal free air or free fluid. Mild atherosclerotic vascular calcifications. Soft tissues and osseous structures are unremarkable. Impression: 1. Mild wall thickening of the gastric antrum and wall thickening in the proximal small bowel. Findings likely represent gastroenteritis. 2. Redemonstrated left adrenal adenoma measuring 4 cm diameter. ------ Exposure: One or more of the following individualized dose reduction techniques were utilized for this examination: 1. Automated exposure control 2. Adjustment of the mA and/or kV according to patient size 3. Use of iterative reconstruction technique. Electronically signed by: Amilcar Lockwood MD (08/01/2021 5:30 AM) [facility] DICTATED and SIGNED BY: AMILCAR LOCKWOOD MD DATE: 08/01/2125 Course & Med Decision Making: Course & Med Decision Making Pertinent Labs and Imaging studies reviewed. (See chart for details) The patient is given IV fluids, IV morphine, IV Toradol, IV Zofran. She has not vomited here. She reports feeling much better. She has a benign, nonsurgical abdominal exam. I discussed the findings, differential diagnosis and plan of care with the patient. No current indication for further invasive exams, imaging or admission at this time. Home care instructions are given. Return precautions are given. I recommend she contact her PCP for follow-up. She verbalizes understanding. Marc Disclaimer: Marc Disclaimer: This electronic medical record was generated, in whole or in part, using a voice recognition dictation system. Departure Departure Impression: Primary Impression: Low back pain Additional Impressions: Generalized abdominal pain Nausea and vomiting Disposition: 01 HOME / SELF CARE / HOMELESS Condition: STABLE Referrals: ORSARIO DASILVA MD (PCP) Patient Instructions: Abdominal Pain, Back Pain, Adult, Viral Gastroenteritis Additional Instructions: Use the medication as needed/as directed. Return to the ER for more severe pain, uncontrolled vomiting, dehydration, vomiting blood, bloody stool, more severe localized abdominal pain, chest pain, shortness of breath, focal weakness, incontinence or other concerns. Please contact your primary care doctor to discuss this issue further. Scripts Ondansetron (ONDANSETRON ODT) 4 Mg Tab.rapdis 1 TAB PO PRN Q6-8HRS for vomiting, #20 TAB Prov: TETO ROSENTHAL DO 08/01/21 Hydrocodone Bit/Acetaminophen (HYDROCODONE-APAP 5-325 ) 1 Tab Tablet 1 TAB PO PRN Q6HRS PRN for PAIN, #15 TAB 0 Refills Prov: TETO ROSENTHAL DO 08/01/21 TETO ROSENTHAL DO Aug 01, 2021 03:45
[2021-08-01] MEDS ORDERED: MORPHINE SULFATE 4 MG/ML INJ. IVP ONE (04:00)
[2021-08-01] MEDS ORDERED: ONDANSETRON PF 4 MG/2 ML VIAL. IVP ONE (04:00)
[2021-08-01] MEDS ORDERED: IV NORMAL SALINE 1000ML BAG 1,000 ML IV ONE ×2 (04:00)
[2021-08-01 04:15] LABS: BASO # 0.1 x10^3/uL (0.0-0.2); BASO % 1 % (0-3); EOS # 0.1 x10^3/uL (0.0-0.7); EOS % 1 % (0-3); HEMATOCRIT 42.8 % (36.0-47.0); HEMOGLOBIN 14.3 g/dL (12.0-15.5); LYMPH # 1.5 x10^3/uL (1.0-4.8); LYMPH % 12 % (24-48); MEAN CORPUSCULAR HEMOGLOBIN 32 pg (25-35); MEAN CORPUSCULAR HGB CONC 33 g/dL (31-37); MEAN CORPUSCULAR VOLUME 95 fL (79-100); MONO # 0.9 x10^3/uL (0.0-1.1); MONO % 7 % (0-9); NEUT # 9.8 x10^3/uL (1.8-7.7); NEUT % 79 % (31-73); PLATELET COUNT 319 x10^3/uL (140-400); RED BLOOD COUNT 4.49 x10^6/uL (3.50-5.40); RED CELL DISTRIBUTION WIDTH 13.4 % (11.5-14.5); WHITE BLOOD COUNT 12.4 x10^3/uL (4.0-11.0)
[2021-08-01 04:22] LABS: CALCIUM 8.7 mg/dL (8.5-10.1); CREATININE 0.9 mg/dL (0.6-1.0); GFR 64.3; POTASSIUM 3.7 mmol/L (3.5-5.1)
[2021-08-01 04:28] LABS: ALBUMIN 3.3 g/dL (3.4-5.0); MAGNESIUM 1.8 mg/dL (1.8-2.4); TOTAL BILIRUBIN 0.3 mg/dL (0.2-1.0); TOTAL PROTEIN 6.5 g/dL (6.4-8.2)
[2021-08-01 04:36] LABS: BILIRUBIN,URINE NEGATIVE (NEG); CLARITY,URINE CLEAR; COLOR,URINE YELLOW; NITRITE,URINE NEGATIVE (NEG); PROTEIN,URINE NEGATIVE (NEG-TRACE); UROBILINOGEN,URINE 0.2 mg/dL (0.2 mg/dL)
[2021-08-01 04:42] LABS: BACTERIA,URINE 0 /HPF (0-FEW)
[2021-08-01] MEDS ORDERED: IOHEXOL 300 MG/ML 100ML VIAL. IV ONE (04:45)
[2021-08-01] MEDS ORDERED: CONTRAST GIVEN. MC PRN (04:45)
[2021-08-01 05:10] VITALS: BP 144/58
--- NOTE | 2021-08-01 05:32 | RAD ---
CT ABDOMEN+PELVIS W History: Abdominal pain, back pain, nausea and vomiting. Comparison: CT abdomen and pelvis 04/19/2017, 08/14/2013. Technique: CT abdomen pelvis with intravenous contrast. Findings: Atelectatic changes in the lung bases. The liver, gallbladder, pancreas and spleen are unremarkable. There is similar appearance of a left adrenal adenoma measuring 4.0 cm diameter, minimally enlarged f rom comparison. The right adrenal is unremarkable. There is a left renal cyst. No nephrolithiasis or hydronephrosis. The stomach is well distended. Mild thickening of the gastric antrum. Mild proximal small bowel wall thickening. No obstruction. Mild to moderate colonic stool burden. No pericolonic inflammatory change s. The bladder and prostate are unremarkable. No intra-abdominal free air or free fluid. Mild atheroscle rotic vascular calcifications. Soft tissues and osseous structures are unremarkable. Impression: 1. Mild wall thickening of the gastric antrum and wall thickening in the proximal small bowel. Findi ngs likely represent gastroenteritis. 2. Redemonstrated left adrenal adenoma measuring 4 cm diameter. ------ Exposure: One or more of the following individualized dose reduction techniques were utilized for thi s examination: 1. Automated exposure control 2. Adjustment of the mA and/or kV according to patient size 3. Use of iterative reconstruction technique. Electronically signed by: Amilcar Maravilla MD (08/01/2021 5:30 AM) [facility]
[2021-08-01] MEDS ORDERED: KETOROLAC 15 MG/ML VIAL. IVP ONE (05:45)
[2021-08-01] MEDS ORDERED: HYDR-2761 PO (05:48)
[2021-08-01] MEDS ORDERED: ONDA4TAB12 PO (05:48)
== END 2021-08-01 06:01 | disposition home or self-care (01) ==
LOC: ER 03:36
DX: M54.50 Low back pain, unspecified (principal); R10.84 Generalized abdominal pain; R11.2 Nausea with vomiting, unspecified; E11.9 Type 2 diabetes mellitus without complications; F17.200 Nicotine dependence, unspecified, uncomplicated; Z90.89 Acquired absence of other organs; Z87.442 Personal history of urinary calculi
CPT/HCPCS: 36415; 74177; 80053; 81001; 82962; 83605; 83690; 83735; 85025; 96361; 96374; 96375; 99285; J1885; J2270; J2405; J7030; Q9967